=== PATIENT | male | born 1955 | race Caucasian/White ===

== ENCOUNTER 2018-01-04 18:50 | Inpatient (IN) | payer MEDICAID ==
[~2018-01-04] VITALS: Ht 185.4 cm; Wt 96.0 kg
[2018-01-04 19:41] LABS: HEMATOCRIT 33.2 % (42.0-52.0); HEMOGLOBIN 11.4 g/dl (14.0-17.9); MEAN CORPUSCULAR HEMOGLOBIN 31.6 PG (27.0-31.0); MEAN CORPUSCULAR HGB CONC 34.3 % (33.0-36.5); MEAN CORPUSCULAR VOLUME 91.9 FL (78-98); MEAN PLATELET VOLUME 8.9 FL (7.4-10.4); PLATELET COUNT 406 X10'3 (140-440); RED BLOOD COUNT 3.61 X10'6 (4.70-6.10); RED CELL DISTRIBUTION WIDTH 16.9 % (11.5-14.5); WHITE BLOOD COUNT 8.1 X10'3 (4.5-11.0)
[2018-01-04 20:05] LABS: INR 1.3 INR; PROTHROMBIN TIME 13.4 SECONDS (9.0-12.0)
[2018-01-04 20:24] LABS: TOTAL CELLS COUNTED 100
[2018-01-04 20:25] LABS: ANISOCYTOSIS 1+; PLATELET ESTIMATE NORMAL; TARGET CELLS FEW
[2018-01-04 20:34] LABS: ALBUMIN 2.3 G/DL (3.4-5.0); BLOOD UREA NITROGEN 50 MG/DL (7-18); CALCIUM 9.7 MG/DL (8.5-10.1); CHLORIDE 101 MMOL/L (99-107)
[2018-01-04 20:54] LABS: PARTIAL THROMBOPLASTIN TIME 38 SECONDS (22-32)
[2018-01-04 20:56] LABS: CLARITY,URINE CLOUDY (Clear); GLUCOSE, URINE 100 mg/dl (Neg); KETONES,URINE NEGATIVE (Neg); LEUKOCYTE ESTERASE ,URINE NEGATIVE (Neg); NITRITES, URINE NEGATIVE (Neg); OCCULT BLOOD,URINE NEGATIVE (Neg); PH,URINE 5.5 (4.8-8.0); PROTEIN,URINE 30 mg/dl (Neg); UROBILINOGEN,URINE 0.2 E.U/dL (0.2-1.0)
[2018-01-04 20:59] LABS: ALANINE AMINOTRANSFERASE 581 U/L (12-78); ALBUMIN/GLOBULIN RATIO 0.5 (1.1-1.5); ANION GAP 20 (8-16); ASPARTATE AMINO TRANSFERASE 390 U/L (10-37); BUN/CREATININE RATIO 29.6 (5.4-32.0); CREATININE 1.69 MG/DL (0.60-1.10); GLUCOSE 88 MG/DL (70-104); POTASSIUM 4.2 MMOL/L (3.5-5.1); SODIUM 135 MMOL/L (135-145); TOTAL PROTEIN 6.9 G/DL (6.4-8.2); eGFR 42 ML/MIN
[2018-01-04 20:59] LABS: COLOR,URINE DARK YELLOW (Yellow); UA COLLECTION TYPE CLN CATCH MIDSTREAM
[2018-01-04 21:08] LABS: AMORPHOUS URATES 4+; BACTERIA,URINE NONE SEEN /HPF (Neg); CELLULAR CAST 0-4 /LPF (NEGATIVE); RBC,URINE NONE SEEN /HPF (0-2); SQUAMOUS EPITHELIAL CELL,UR FEW /LPF (FEW); WBC,URINE NONE SEEN /HPF (0-4)
[2018-01-04 21:09] LABS: RENAL CELLS, URINE FEW /HPF; TRANSITIONAL EPI CELLS,URINE FEW /HPF
[2018-01-04 21:17] LABS: ALKALINE PHOSPHATASE 1672 IU/L (46-116); BILIRUBIN,TOTAL 36.3 MG/DL (0.1-1.0)
[2018-01-04 21:19] LABS: TOTAL CARBON DIOXIDE 13.9 MMOL/L (24-32)
[2018-01-04] MEDS ORDERED: HYDR-3965 PO (21:21)
[2018-01-04] MEDS ORDERED: LOSA50TA3 PO (21:21)
[2018-01-04] MEDS ORDERED: ASPI-1265 PO (21:21)
[2018-01-04] MEDS ORDERED: magnesium hydroxide 30ml (MOM) UD suspension PO PRN (22:05)
[2018-01-04] MEDS ORDERED: diphenhydrAMINE 25mg capsule PO PRN (22:05)
[2018-01-04] MEDS ORDERED: ondansetron/PF 4mg/2ml inj IV PRN (22:05)
[2018-01-04] MEDS ORDERED: mag hydrox/Alum hydrox/simeth 30ml oral suspension PO PRN (22:05)
[2018-01-04] MEDS: normal saline 1000ml 1,000 ML IV SCH ×2 (22:23→23:41)
[2018-01-05] VITALS (22 sets, daily range): BP systolic 64–112; BP diastolic 43–75
[2018-01-05 05:06] LABS: HEMATOCRIT 29.9 % (42.0-52.0); HEMOGLOBIN 10.3 g/dl (14.0-17.9); MEAN CORPUSCULAR HEMOGLOBIN 31.7 PG (27.0-31.0); MEAN CORPUSCULAR HGB CONC 34.5 % (33.0-36.5); MEAN CORPUSCULAR VOLUME 91.7 FL (78-98); MEAN PLATELET VOLUME 8.7 FL (7.4-10.4); PLATELET COUNT 373 X10'3 (140-440); RED BLOOD COUNT 3.26 X10'6 (4.70-6.10); RED CELL DISTRIBUTION WIDTH 15.9 % (11.5-14.5)
[2018-01-05 05:14] LABS: INR 1.4 INR; PROTHROMBIN TIME 13.7 SECONDS (9.0-12.0)
[2018-01-05 05:27] LABS: ANION GAP 17 (8-16); BLOOD UREA NITROGEN 53 MG/DL (7-18); CALCIUM 9.1 MG/DL (8.5-10.1); CHLORIDE 103 MMOL/L (99-107); SODIUM 131 MMOL/L (135-145)
[2018-01-05 05:46] LABS: ALANINE AMINOTRANSFERASE 560 U/L (12-78); ALBUMIN/GLOBULIN RATIO 0.5 (1.1-1.5); ASPARTATE AMINO TRANSFERASE 388 U/L (10-37); BUN/CREATININE RATIO 29.6 (5.4-32.0); CREATININE 1.79 MG/DL (0.60-1.10); GLUCOSE 90 MG/DL (70-104); MAGNESIUM 1.3 MG/DL (1.5-2.4); TOTAL PROTEIN 6.1 G/DL (6.4-8.2); eGFR 39 ML/MIN
[2018-01-05 05:51] LABS: ALKALINE PHOSPHATASE 1559 IU/L (46-116); BILIRUBIN,TOTAL 32.1 MG/DL (0.1-1.0); POTASSIUM 4.1 MMOL/L (3.5-5.1)
[2018-01-05 06:08] LABS: TOTAL CELLS COUNTED 100
[2018-01-05 06:09] LABS: ANISOCYTOSIS 1+; PLATELET ESTIMATE NORMAL; TARGET CELLS FEW
[2018-01-05 06:25] LABS: TOTAL CARBON DIOXIDE 11.2 MMOL/L (24-32)
[2018-01-05] MEDS: losartan 50mg tablet PO SCH (07:05)
[2018-01-05] MEDS: sodium bicarbonate (8.4%) inj. 150 MEQ in dextrose 5%-water 1,000 ML IV SCH ×2 (07:23→19:30)
[2018-01-05] MEDS ORDERED: meperidine/PF 100mg/ml syringe ONE (11:36)
[2018-01-05] MEDS ORDERED: glucagon, human recombinant 1mg kit ONE (11:37)
[2018-01-05] MEDS ORDERED: levoFLOXACIN-Levaquin 500mg/D5 100 ML IV ONE (11:37)
[2018-01-05] MEDS ORDERED: diphenhydrAMINE 50 mg/ml inj ONE (11:37)
[2018-01-05] MEDS ORDERED: LIDOcaine Viscous 15ml cup ONE (11:37)
[2018-01-05] MEDS ORDERED: MIDAZolam 5mg/5ml vial ONE (11:37)
[2018-01-05] MEDS ORDERED: fentaNYL/PF 50MCG/1 ML 2ML syringe ONE (11:37)
[2018-01-05] MEDS ORDERED: iohexol 300 MG/1 ML 50ml polymer ONE (11:38)
[2018-01-05] MEDS: normal saline 1000ml 1,000 ML IV SCH (18:05)
[2018-01-06] VITALS: BP 98/58
[2018-01-06] MEDS: normal saline 1000ml 1,000 ML IV SCH ×2 (04:05→14:05)
[2018-01-06 05:08] LABS: HEMOGLOBIN 9.6 g/dl (14.0-17.9); MEAN CORPUSCULAR HEMOGLOBIN 32.1 PG (27.0-31.0); MEAN CORPUSCULAR HGB CONC 35.5 % (33.0-36.5); MEAN CORPUSCULAR VOLUME 90.3 FL (78-98); MEAN PLATELET VOLUME 8.5 FL (7.4-10.4); PLATELET COUNT 354 X10'3 (140-440); RED BLOOD COUNT 2.99 X10'6 (4.70-6.10); RED CELL DISTRIBUTION WIDTH 16.4 % (11.5-14.5); WHITE BLOOD COUNT 7.1 X10'3 (4.5-11.0)
[2018-01-06 05:39] LABS: INR 1.6 INR; PROTHROMBIN TIME 15.8 SECONDS (9.0-12.0)
[2018-01-06 05:42] LABS: ALANINE AMINOTRANSFERASE 517 U/L (12-78); ALBUMIN 1.7 G/DL (3.4-5.0); BLOOD UREA NITROGEN 51 MG/DL (7-18); CALCIUM 8.6 MG/DL (8.5-10.1); CHLORIDE 102 MMOL/L (99-107); MAGNESIUM 1.5 MG/DL (1.5-2.4); TOTAL CARBON DIOXIDE 20.8 MMOL/L (24-32)
[2018-01-06 05:59] LABS: ALBUMIN/GLOBULIN RATIO 0.4 (1.1-1.5); ANION GAP 18 (8-16); BUN/CREATININE RATIO 33.3 (5.4-32.0); CREATININE 1.53 MG/DL (0.60-1.10); GLUCOSE 95 MG/DL (70-104); POTASSIUM 3.3 MMOL/L (3.5-5.1); SODIUM 141 MMOL/L (135-145); TOTAL PROTEIN 5.6 G/DL (6.4-8.2); eGFR 47 ML/MIN
[2018-01-06 06:16] LABS: ASPARTATE AMINO TRANSFERASE 397 U/L (10-37)
[2018-01-06 06:17] LABS: ALKALINE PHOSPHATASE 1380 IU/L (46-116); BILIRUBIN,TOTAL 30.2 MG/DL (0.1-1.0)
[2018-01-06 06:28] LABS: ANISOCYTOSIS 1+; PLATELET ESTIMATE NORMAL; TOTAL CELLS COUNTED 100
[2018-01-06 06:29] LABS: TARGET CELLS FEW
[2018-01-06 08:00] VITALS: BP 96/47
[2018-01-06] MEDS: losartan 50mg tablet PO SCH (08:00)
[2018-01-06] MEDS: sodium bicarbonate (8.4%) inj. 150 MEQ in dextrose 5%-water 1,000 ML IV SCH (10:12)
[2018-01-06 10:35] VITALS: BP 96/47
[2018-01-06 11:00] VITALS: BP 109/46
[2018-01-06] MEDS ORDERED: normal saline 1000ml 1,000 ML IV SCH (16:50)
[2018-01-06] MEDS ORDERED: magnesium Cl slow-release 64mg tablet PO PRN (18:40)
[2018-01-06] MEDS ORDERED: potassium Cl 20 mEq SR tablet PO PRN ×2 (18:40)
[2018-01-06] MEDS ORDERED: potassium Cl 40MEQ/NS 500ml 500 ML IV PRN ×2 (18:40)
[2018-01-06] MEDS ORDERED: magnesium 4gm in 100ml NS 100 ML IV PRN (18:40)
[2018-01-06 19:00] VITALS: BP 113/80
[2018-01-06] MEDS ORDERED: pantoprazole 40 MG vial IV SCH (20:00)
== END 2018-01-06 22:40 | disposition short-term general hospital (02) ==
LOC: ER 18:50 → SUR 3N 22:05 → CMPBEDREQ 01-05 00:09
PROVIDERS: ADMIT Hospitalist; ATTEND Internal Medicine
PROC: 0FJB8ZZ Inspection of Hepatobiliary Duct, Via Natural or Artificial Opening Endoscopic (ICD-10-PCS; principal; 2018-01-05)
PROC: BF131ZZ Fluoroscopy of Gallbladder and Bile Ducts using Low Osmolar Contrast (ICD-10-PCS; 2018-01-05)
DX: K83.1 Obstruction of bile duct (principal); K72.00 Acute and subacute hepatic failure without coma; E43 Unspecified severe protein-calorie malnutrition; N17.9 Acute kidney failure, unspecified; K86.89 Other specified diseases of pancreas; E87.2 Acidosis; D63.8 Anemia in other chronic diseases classified elsewhere; K82.8 Other specified diseases of gallbladder; L29.9 Pruritus, unspecified; I10 Essential (primary) hypertension; Z72.0 Tobacco use; Z88.0 Allergy status to penicillin; Z79.899 Other long term (current) drug therapy; Z68.27 Body mass index [BMI] 27.0-27.9, adult
CPT/HCPCS: 36415; 80053; 81001; 83735; 85025; 85610; 85730; 87070; 99152; 99153; 99285; A4620; C9113; G0378; J1200; J1610; J1956; J2175; J2250; J3010; J7030; Q9967

== ENCOUNTER 2023-06-02 13:35 | Emergency (ER) | payer BC, MEDICAID, SELFPAY ==
[~2023-06-02] VITALS: Ht 185.4 cm; Wt 93.0 kg
[~2023-06-02 13:35] MED LIST: ASPI-1265 PO; HYDR-3965 PO; LOSA-416 PO
[2023-06-02 14:54] LABS: BILIRUBIN,URINE SMALL (Neg); CLARITY,URINE CLOUDY (Clear); COLOR,URINE YELLOW (Yellow); GLUCOSE, URINE 100 mg/dl (Neg); KETONES,URINE NEGATIVE (Neg); LEUKOCYTE ESTERASE ,URINE NEGATIVE (Neg); NITRITES, URINE NEGATIVE (Neg); OCCULT BLOOD,URINE NEGATIVE (Neg); PH,URINE 5.5 (4.8-8.0); PROTEIN,URINE NEGATIVE (Neg); UROBILINOGEN,URINE 0.2 E.U/dL (0.2-1.0)
[2023-06-02 14:59] LABS: UA COLLECTION TYPE VOIDED
[2023-06-02 15:04] LABS: URINE AMPHETAMINE SCREEN NEGATIVE (Neg); URINE BARBITUATE SCREEN NEGATIVE (Neg); URINE BENZODIAZEPINES SCREEN NEGATIVE (Neg); URINE CANNABINOID SCREEN POSITIVE (Neg); URINE COCAINE SCREEN NEGATIVE (Neg); URINE METHADONE SCREEN NEGATIVE (Neg); URINE OPIATE SCREEN POSITIVE (Neg); URINE PHENCYCLIDINE SCREEN NEGATIVE (Neg)
[2023-06-02 15:07] LABS: MUCUS STRANDS MANY /LPF (Neg)
[2023-06-02 15:08] LABS: AMORPHOUS URATES 1+; BACTERIA,URINE FEW /HPF (Neg); RBC,URINE 0-2 /HPF (0-2); SQUAMOUS EPITHELIAL CELL,UR FEW /LPF (FEW); WBC,URINE 0-4 /HPF (0-4)
[2023-06-02 15:09] LABS: BASOPHILS % (AUTO) 0.6 % (0-1); EOSINOPHILS # (AUTO) 0.4 X10'3 (0-0.9); EOSINOPHILS % (AUTO) 5.6 % (0-6); HEMATOCRIT 44.4 % (42.0-52.0); HEMOGLOBIN 15.5 g/dl (14.0-17.9); LYMPHOCYTES # (AUTO) 1.9 X10'3 (1.1-4.8); LYMPHOCYTES % (AUTO) 25.6 % (21-51); MEAN CORPUSCULAR HEMOGLOBIN 32.9 PG (27.0-31.0); MEAN CORPUSCULAR HGB CONC 34.9 g/dL (33.0-36.5); MEAN CORPUSCULAR VOLUME 94.3 FL (78-98); MEAN PLATELET VOLUME 7.8 FL (7.4-10.4); MONOCYTES # (AUTO) 0.5 X10'3 (0-0.9); MONOCYTES % (AUTO) 6.7 % (2-12); NEUTROPHILS # (AUTO) 4.5 X10'3 (1.8-7.7); NEUTROPHILS % (AUTO) 61.5 % (42-75); PLATELET COUNT 229 X10'3 (140-440); RED BLOOD COUNT 4.71 X10'6 (4.70-6.10); RED CELL DISTRIBUTION WIDTH 12.9 % (11.5-14.5); WHITE BLOOD COUNT 7.4 X10'3 (4.5-11.0)
[2023-06-02 15:37] LABS: ALBUMIN 3.9 G/DL (3.4-5.0); ANION GAP 11 (8-16); BLOOD UREA NITROGEN 12 MG/DL (7-18); BUN/CREATININE RATIO 11.9 (10.0-20.0); CALCIUM 8.8 MG/DL (8.5-10.1); CHLORIDE 106 MMOL/L (99-107); CREATININE 1.01 MG/DL (0.60-1.10); GLUCOSE 128 MG/DL (70-104); SODIUM 141 MMOL/L (135-145); THYROID STIMULATING HORMONE 0.98 ulU/ml (0.34-4.50); TOTAL CARBON DIOXIDE 24.3 MMOL/L (24-32); eCRCL 82 ML/MIN; eGFR 74 ML/MIN
[2023-06-02 16:04] LABS: ETHANOL < 10 MG/DL (<10)
[2023-06-02] MEDS: LORazepam 1 MG tablet PO ONE (16:20)
[2023-06-02] MEDS ORDERED: HYDR-3973 PO (18:19)
[2023-06-02] MEDS ORDERED: PANT40TA54 PO (18:19)
[2023-06-02] MEDS ORDERED: pantoprazole 40mg Tablet.DR PO SCH (20:00)
[2023-06-02 20:40] VITALS: BP 156/79; PULSE 64; RESP 18; TEMP 96.2; O2SAT 97
[2023-06-02] MEDS ORDERED: HYDROcodone/acetaminophen 10/325mg tab PO SCH (21:00)
== END 2023-06-02 20:43 | disposition home or self-care (01) ==
LOC: ER 13:36
DX: F32.A Depression, unspecified (principal); F41.9 Anxiety disorder, unspecified; R45.851 Suicidal ideations; Z20.822 Contact with and (suspected) exposure to COVID-19; Z88.0 Allergy status to penicillin
CPT/HCPCS: 36415; 70450; 80048; 80305; 80320; 81001; 84443; 85025; 87811; 99284; 99285